=== PATIENT | female | born 1970 | race Caucasian/White ===

== ENCOUNTER → 2016-11-13 | Outpatient (CLI) | payer BC ==
[~2016-11-13] MED LIST: B12 INJECTION; CHOL10003 PO; DEPO-PROVERA IM; DIPH50CA33 PO; PRD20T PO
--- OUTSIDE RECORDS SUMMARY | 2016-11-13 10:19 | XMS REPORT | Continuity of Care Document ---
Author Author [facility] Organization [facility] Address Unknown Phone Unavailable Care Team Providers Care Intake Counselor Name Role Phone PROSPER SANCHEZ DO PCP Insurance Providers Payer Name Policy Number Subscriber Name Relationship [facility] [id number] Kole Groves Self / Same As Patient Advance Directives Directive Response Recorded Date/Time Advance Directives No 02/09/14 7:45am Health Care Power of Clean Energy Policy Analyst No 02/09/14 7:45am Organ Donor No 02/09/14 [...] Encounters Encounter Location Date/Time Discharged Recurring Via [facility] 01/30/15 12:15pm
--- NOTE | 2016-11-13 12:23 | Diagnostic Imaging Report ---
INDICATION: Follow-up right adnexal cystic lesion, postmenopausal. COMPARISON: 09/18/2016. DISCUSSION: Transabdominal and transvaginal sonographic evaluation of the pelvis was performed. The uterus is normal in echotexture and size measuring 6.9 x 4.5 x 3.6 cm. Suspect small fibroid measuring 0.8 cm. Normal endometrial thickness measuring 0.9 cm. The ovaries appear normal in echotexture and size bilaterally with normal color Doppler blood flow. The right ovary measures 2.7 x 1.6 x 1.5 cm. The left ovary measures 4.3 x 2.7 x 2.6 cm. Normal follicular activity is seen within the bilateral ovaries. Previously demonstrated cystic lesion adjacent to the right ovary is no longer visualized, possibly interval resolution of an exophytic functional follicle. No abnormal adnexal mass or fluid. IMPRESSION: 1. Interval resolution of previous right ovarian cystic lesion. Normal follicular activity is noted on today's exam. 2. Suspect subcentimeter uterine fibroid. Dictated by: Dictated on workstation # [id number]
== END ==
LOC: RAD 10:16
PROVIDERS: ATTEND Obstetrics & Gynecology
DX: D28.2 Benign neoplasm of uterine tubes and ligaments (principal)
CPT/HCPCS: 76830; 76856

== ENCOUNTER 2016-12-11 11:03 | Outpatient (RCR) | payer BC ==
--- OUTSIDE RECORDS SUMMARY | 2016-09-18 09:25 | XMS REPORT | Continuity of Care Document ---
Author Author [facility] Organization [facility] Address Unknown Phone Unavailable Care Team Providers Care Corn Miller Name Role Phone PROSPER SANCHEZ DO PCP Insurance Providers Payer Name Policy Number Subscriber Name Relationship [facility] [id number] Kole Groves Self / Same As Patient Advance Directives Directive Response Recorded Date/Time Advance Directives No 02/09/14 7:45am Health Care Power of Customer Support Technician No 02/09/14 7:45am Organ Donor No 02/09/14 7:45am Problems No known problems or medical conditions. Medications Medication Dose Route Sig Days/Qty Instructions Order Date Discontinued Date Status [B12 Injection] Q 3 DAYS 08/29/10 Active Diphenhydramine HCl 1 Each PO THREE TIMES A DAY 20 Qty 08/29/10 Discontinued Prednisone 20 Mg PO TWICE A DAY 10 Qty 08/29/10 02/09/14 Discontinued Cholecalciferol 1,000 Unit PO DAILY 0 Qty 02/09/14 Active [Depo-Provera] IM Q 3 MONTHS 02/09/14 Active Social History Social History Problem Response Recorded Date/Time Recent Foreign Travel No 01/28/2015 11:06am Hospital Discharge Instructions No hospital discharge instructions. Plan of Care No plan of care. Functional Status No functional status results. Allergies, Adverse Reactions, Alerts Allergen Type Severity Reaction Status Last Updated Iron Allergy Unknown IV IRON Active 08/28/10 Immunizations No immunization records. Vital Signs No known vital signs results. Results Laboratory Results Test Name Result Units Flags Reference Collection Date/Time Result Date/ Time Comments White Blood Count 2.9 10^3/uL L 4.3-11.0 01/28/2015 11:38am 01/28/2015 11 :54am Red Blood Count 5.21 10^6/uL 4.35-5.85 01/28/2015 11:38am 01/28/2015 11 :54am Hemoglobin 9.9 G/DL L 11.5-16.0 01/28/2015 11:38am 01/28/2015 11:54am Hematocrit 34 % L 35-52 01/28/2015 11:38am 01/28/2015 11:54am Mean Corpuscular Volume 65 FL L 80-99 01/28/2015 11:38am 01/28/2015 11: 54am Mean Corpuscular Hemoglobin 19 PG L 25-34 01/28/2015 11:38am 01/28/2015 11:54am Mean Corpuscular Hemoglobin Concent 29 G/DL L 32-36 01/28/2015 11:38am 11:54am Red Cell Distribution Width 17.0 % H 10.0-14.5 01/28/2015 11:38am 2014 11:54am Platelet Count 266 10^3/uL 130-400 01/28/2015 11:38am 01/28/2015 11: 54am Mean Platelet Volume 10.7 FL H 7.4-10.4 01/28/2015 11:38am 01/28/2015 11: 54am Neutrophils (%) (Auto) 51 % 42-75 01/28/2015 11:38am 01/28/2015 11: 54am Lymphocytes (%) (Auto) 36 % 12-44 01/28/2015 11:38am 01/28/2015 11: 54am Monocytes (%) (Auto) 11 % 0-12 01/28/2015 11:38am 01/28/2015 11:54am Eosinophils (%) (Auto) 1 % 0-10 01/28/2015 11:38am 01/28/2015 11:54am Basophils (%) (Auto) 1 % 0-10 01/28/2015 11:38am 01/28/2015 11:54am Neutrophils # (Auto) 1.5 X 10^3 L 1.8-7.8 01/28/2015 11:38am 01/28/2015 11:54am Lymphocytes # (Auto) 1.0 X 10^3 1.0-4.0 01/28/2015 11:38am 01/28/2015 11:54am Monocytes # (Auto) 0.3 X 10^3 0.0-1.0 01/28/2015 11:38am 01/28/2015 11: 54am Eosinophils # (Auto) 0.0 10^3/uL 0.0-0.3 01/28/2015 11:38am 01/28/2015 11:54am Basophils # (Auto) 0.0 10^3/uL 0.0-0.1 01/28/2015 11:38am 01/28/2015 11 :54am Erythrocyte Sedimentation Rate 13 MM/HR 0-20 01/28/2015 11:38am 2014 2:01pm Sodium Level 141 MMOL/L 135-145 01/28/2015 11:3801/28/2015 12:15pm Potassium Level 3.8 MMOL/L 3.6-5.0 01/28/2015 11:3801/28/2015 12: 15pm Chloride Level 109 MMOL/L H 98-107 01/28/2015 11:3801/28/2015 12:15pm Carbon Dioxide Level 25 MMOL/L 21-32 01/28/2015 11:38am 01/28/2015 12: 15pm Blood Urea Nitrogen 7 MG/DL 7-18 01/28/2015 11:3801/28/2015 12:15pm Creatinine 0.77 MG/DL 0.60-1.30 01/28/2015 11:3801/28/2015 12:15pm BUN/Creatinine Ratio 9 01/28/2015 11:3801/28/2015 12:15pm Estimat Glomerular Filtration Rate > 60 01/28/2015 11:382014 12:15pm GFR INTERPRETIVE DATA UNITS FOR ESTIMATED GFR (eGFR): mL/min/1.73 M2 REFERENCE RANGE FOR ESTIMATED GFR (eGFR) eGFR NORMAL eGFR >60 MODERATELY DECREASED eGFR 30-59 SEVERLY DECREASED eGFR 15-29 KIDNEY FAILURE <15 (OR DIALYSIS) Glucose Level 92 MG/DL 70-105 01/28/2015 11:3801/28/2015 12:15pm Calcium Level 9.5 MG/DL 8.5-10.1 01/28/2015 11:3801/28/2015 12:15pm Total Bilirubin 1.0 MG/DL 0.1-1.0 01/28/2015 11:3801/28/2015 12: 15pm Alkaline Phosphatase 55 U/L 40-136 01/28/2015 11:3801/28/2015 12: 15pm Aspartate Amino Transf (AST/SGOT) 23 U/L 5-34 01/28/2015 11:382014 12:15pm Alanine Aminotransferase (ALT/SGPT) 18 U/L 0-55 01/28/2015 11:38 12:15pm Lactate Dehydrogenase 168 U/L 125-220 01/28/2015 11:3801/28/2015 12: 15pm Total Protein 7.5 G/DL 6.4-8.2 01/28/2015 11:3801/28/2015 12:15pm Albumin 4.2 G/DL 3.2-4.5 01/28/2015 11:3801/28/2015 12:15pm Thyroid Stimulating Hormone (TSH) 1.21 UIU/ML 0.35-4.94 01/28/2015 11: 3801/28/2015 12:43pm Free Thyroxine 1.00 NG/DL 0.70-1.48 01/28/2015 11:38am 01/28/2015 12: 43pm Stool Occult Blood Immunoassay NEGATIVE NEGATIVE 01/29/2015 11:00pm 01/30/2015 2:20pm Anti-Nuclear Antibody Screen <1:80 <1:80 01/28/2015 11:382014 8:16am IF GENET SCREEN POSITIVE TITER AND PATTERN WILL FOLLOW. Index Value Interpretation <1:20 NORMAL RANGE FOR CHILDREN AGE 0 - 12 years <1:80 NORMAL RANGE FOR ADULTS AGE 13 - 150 years Ferritin 5 L NG/ML 15-150 01/28/2015 11:38am 01/31/2015 8:16am Folate 13.3 NG/ML 1.5-24.0 01/28/2015 11:38am 01/31/2015 8:16am Iron Level 11 L UG/DL 35-180 01/28/2015 11:38am 01/31/2015 8:16am Transferrin % Saturation 2 L % 15-50 01/28/2015 11:38am 01/31/2015 8: 16am Total Iron Binding Capacity 441 H UG/DL 280-380 01/28/2015 11:38am 8:16am Vitamin B12 Level 216 PG/ML 200-1000 01/28/2015 11:38am 01/31/2015 8: 16am Vitamin D 25-Hydroxy 10 L NG/ML 30-100 01/28/2015 11:38am 01/31/2015 8 :16am Fluorescein dye has been shown to affect the Vitamin D assay and results may be falsely elevated. Patients that have had a procedure using this dye should be deferred 72 hours prior to blood samples drawn for this assay. Procedures No known history of procedures. Encounters Encounter Location Date/Time Discharged Recurring Via [facility] 01/30/15 12:15pm
[2016-09-18 09:54] LABS: BASOPHILS % (AUTO) 0 % (0-10); EOSINOPHILS # (AUTO) 0.1 10^3/uL (0.0-0.3); EOSINOPHILS % (AUTO) 1 % (0-10); LYMPHOCYTES # (AUTO) 1.4 X 10^3 (1.0-4.0); LYMPHOCYTES % (AUTO) 27 % (12-44); MEAN CORPUSCULAR HEMOGLOBIN 28 PG (25-34); MEAN CORPUSCULAR HGB CONC 33 G/DL (32-36); MEAN CORPUSCULAR VOLUME 84 FL (80-99); MEAN PLATELET VOLUME 10.2 FL (7.4-10.4); MONOCYTES # (AUTO) 0.6 X 10^3 (0.0-1.0); MONOCYTES % (AUTO) 12 % (0-12); NEUTROPHILS # (AUTO) 3.1 X 10^3 (1.8-7.8); NEUTROPHILS % (AUTO) 60 % (42-75); PLATELET COUNT 185 10^3/uL (130-400); RED CELL DISTRIBUTION WIDTH 18.1 % (10.0-14.5); WHITE BLOOD COUNT 5.2 10^3/uL (4.3-11.0)
[2016-09-18 10:30] LABS: ALANINE AMINOTRANSFERASE 21 U/L (0-55); ALBUMIN 4.1 G/DL (3.2-4.5); ANION GAP 8 MMOL/L (5-14); ASPARTATE AMINO TRANSFERASE 19 U/L (5-34); BILIRUBIN,TOTAL 1.9 MG/DL (0.1-1.0); BLOOD UREA NITROGEN 8 MG/DL (7-18); BUN/CREATININE RATIO 12; CALCIUM 8.8 MG/DL (8.5-10.1); CARBON DIOXIDE 23 MMOL/L (21-32); CHLORIDE 111 MMOL/L (98-107); CREATININE SERUM 0.68 MG/DL (0.60-1.30); GFR ESTIMATED > 60; GLUCOSE 87 MG/DL (70-105); POTASSIUM 4.1 MMOL/L (3.6-5.0); SODIUM 142 MMOL/L (135-145); TOTAL PROTEIN 6.2 G/DL (6.4-8.2)
[2016-09-18 12:24] LABS: %SAT TOTAL IRON BINDING CAPIC 28 % (15-50); TIBC 327 ug/dL (280-380)
[2016-09-19 07:52] LABS: FERRITIN 19 ng/mL (15-150); UIBC 235 ug/dL (55-450)
[2016-09-25 15:41] LABS: RED BLOOD COUNT 4.91 10^6/uL (4.35-5.85); RETICULOCYTE % 0.78 % (0.50-2.40)
[2016-12-11 11:11] LABS: BASOPHILS % (AUTO) 1 % (0-10); EOSINOPHILS # (AUTO) 0.1 10^3/uL (0.0-0.3); EOSINOPHILS % (AUTO) 1 % (0-10); LYMPHOCYTES # (AUTO) 1.8 X 10^3 (1.0-4.0); LYMPHOCYTES % (AUTO) 28 % (12-44); MEAN CORPUSCULAR HEMOGLOBIN 30 PG (25-34); MEAN CORPUSCULAR HGB CONC 34 G/DL (32-36); MEAN CORPUSCULAR VOLUME 89 FL (80-99); MEAN PLATELET VOLUME 10.1 FL (7.4-10.4); MONOCYTES # (AUTO) 0.7 X 10^3 (0.0-1.0); MONOCYTES % (AUTO) 11 % (0-12); NEUTROPHILS # (AUTO) 3.7 X 10^3 (1.8-7.8); NEUTROPHILS % (AUTO) 59 % (42-75); PLATELET COUNT 225 10^3/uL (130-400); RED BLOOD COUNT 4.93 10^6/uL (4.35-5.85); RED CELL DISTRIBUTION WIDTH 12.5 % (10.0-14.5); WHITE BLOOD COUNT 6.3 10^3/uL (4.3-11.0)
[2016-12-11 11:47] LABS: ALANINE AMINOTRANSFERASE 25 U/L (0-55); ALBUMIN 4.3 G/DL (3.2-4.5); ANION GAP 8 MMOL/L (5-14); ASPARTATE AMINO TRANSFERASE 26 U/L (5-34); BILIRUBIN,DIRECT 0.5 MG/DL (0.0-0.3); BILIRUBIN,TOTAL 1.5 MG/DL (0.1-1.0); BLOOD UREA NITROGEN 13 MG/DL (7-18); BUN/CREATININE RATIO 17; CALCIUM 9.1 MG/DL (8.5-10.1); CARBON DIOXIDE 25 MMOL/L (21-32); CHLORIDE 109 MMOL/L (98-107); CREATININE SERUM 0.76 MG/DL (0.60-1.30); GFR ESTIMATED > 60; GLUCOSE 92 MG/DL (70-105); POTASSIUM 4.8 MMOL/L (3.6-5.0); SODIUM 142 MMOL/L (135-145); TOTAL PROTEIN 6.6 G/DL (6.4-8.2)
[2016-12-14 07:49] LABS: ZINC 73 ug/dL (60-120)
[2016-12-14 07:50] LABS: COPPER 102 ug/dL (80-155)
== END 2016-12-17 | disposition home or self-care (01) ==
LOC: ONC 11:03
PROVIDERS: ATTEND Internal Medicine Hematology & Oncology
DX: D50.9 Iron deficiency anemia, unspecified (principal)
CPT/HCPCS: 36415; 80053; 82248; 82525; 82728; 83540; 84630; 85025; 85045; 99213

== ENCOUNTER → 2016-12-11 | Outpatient (CLI) | payer BC ==
--- OUTSIDE RECORDS SUMMARY | 2016-12-11 11:04 | XMS REPORT | Continuity of Care Document ---
Author Author [facility] Organization [facility] Address Unknown Phone Unavailable Care Team Providers Care Job Setter Name Role Phone PROSPER SANCHEZ DO PCP Insurance Providers Payer Name Policy Number Subscriber Name Relationship [facility] [id number] Kole Groves Self / Same As Patient Advance Directives Directive Response Recorded Date/Time Advance Directives No 02/09/14 7:45am Health Care Power of Brim Pouncing Machine Operator No 02/09/14 7:45am Organ Donor No 02/09/14 [...] Encounters Encounter Location Date/Time Discharged Recurring Via [facility] 01/30/15 12:15pm
== END ==
LOC: LAB 11:00
PROVIDERS: ATTEND Family Medicine
DX: E53.8 Deficiency of other specified B group vitamins (principal)
CPT/HCPCS: 36415; 82607

== ENCOUNTER 2016-12-25 09:54 | Outpatient (RCR) | payer BC ==
--- OUTSIDE RECORDS SUMMARY | 2016-12-25 09:57 | XMS REPORT | Continuity of Care Document ---
Author Author [facility] Organization [facility] Address Unknown Phone Unavailable Care Team Providers Care Personal Counselor Name Role Phone PROSPER SANCHEZ DO PCP Insurance Providers Payer Name Policy Number Subscriber Name Relationship [facility] [id number] Kole Groves Self / Same As Patient Advance Directives Directive Response Recorded Date/Time Advance Directives No 02/09/14 7:45am Health Care Power of Salvage Machine Operator No 02/09/14 7:45am Organ Donor [...] Encounters Encounter Location Date/Time Discharged Recurring Via [facility] 01/30/15 12:15pm
== END 2017-03-25 | disposition home or self-care (01) ==
LOC: ONC 09:54
PROVIDERS: ATTEND Internal Medicine Hematology & Oncology
DX: D50.8 Other iron deficiency anemias (principal); E53.8 Deficiency of other specified B group vitamins; E80.6 Other disorders of bilirubin metabolism; E66.9 Obesity, unspecified; Z68.37 Body mass index [BMI] 37.0-37.9, adult; Z98.84 Bariatric surgery status; Z79.899 Other long term (current) drug therapy
CPT/HCPCS: 99213

== ENCOUNTER 2017-04-09 10:01 | Outpatient (RCR) | payer BC ==
[2017-03-26 08:47] LABS: BASOPHILS % (AUTO) 1 % (0-10); EOSINOPHILS # (AUTO) 0.1 10^3/uL (0.0-0.3); EOSINOPHILS % (AUTO) 2 % (0-10); LYMPHOCYTES # (AUTO) 1.4 X 10^3 (1.0-4.0); LYMPHOCYTES % (AUTO) 33 % (12-44); MEAN CORPUSCULAR HEMOGLOBIN 30 PG (25-34); MEAN CORPUSCULAR HGB CONC 34 G/DL (32-36); MEAN CORPUSCULAR VOLUME 89 FL (80-99); MEAN PLATELET VOLUME 10.6 FL (7.4-10.4); MONOCYTES # (AUTO) 0.5 X 10^3 (0.0-1.0); MONOCYTES % (AUTO) 11 % (0-12); NEUTROPHILS # (AUTO) 2.3 X 10^3 (1.8-7.8); NEUTROPHILS % (AUTO) 54 % (42-75); PLATELET COUNT 210 10^3/uL (130-400); RED BLOOD COUNT 4.74 10^6/uL (4.35-5.85); RED CELL DISTRIBUTION WIDTH 12.4 % (10.0-14.5); WHITE BLOOD COUNT 4.3 10^3/uL (4.3-11.0)
[2017-03-26 09:15] LABS: ALANINE AMINOTRANSFERASE 14 U/L (0-55); ALBUMIN 3.9 G/DL (3.2-4.5); ANION GAP 5 MMOL/L (5-14); ASPARTATE AMINO TRANSFERASE 16 U/L (5-34); BILIRUBIN,TOTAL 1.6 MG/DL (0.1-1.0); BLOOD UREA NITROGEN 11 MG/DL (7-18); BUN/CREATININE RATIO 16; CALCIUM 8.8 MG/DL (8.5-10.1); CARBON DIOXIDE 27 MMOL/L (21-32); CHLORIDE 110 MMOL/L (98-107); CREATININE SERUM 0.69 MG/DL (0.60-1.30); GFR ESTIMATED > 60; GLUCOSE 95 MG/DL (70-105); POTASSIUM 4.1 MMOL/L (3.6-5.0); SODIUM 142 MMOL/L (135-145); TOTAL PROTEIN 6.1 G/DL (6.4-8.2)
== END 2017-06-24 | disposition home or self-care (01) ==
LOC: ONC 10:01
PROVIDERS: ATTEND Internal Medicine Hematology & Oncology
DX: D50.8 Other iron deficiency anemias (principal); E53.8 Deficiency of other specified B group vitamins; E80.6 Other disorders of bilirubin metabolism; E66.9 Obesity, unspecified; Z68.37 Body mass index [BMI] 37.0-37.9, adult; Z98.84 Bariatric surgery status; Z79.899 Other long term (current) drug therapy
CPT/HCPCS: 36415; 80053; 82607; 82728; 83540; 85025; 99213

== ENCOUNTER 2017-07-09 09:40 | Outpatient (RCR) | payer BC ==
[2017-07-09 10:05] LABS: BASOPHILS # (AUTO) 0.1 10^3/uL (0.0-0.1); BASOPHILS % (AUTO) 1 % (0-10); EOSINOPHILS # (AUTO) 0.1 10^3/uL (0.0-0.3); EOSINOPHILS % (AUTO) 1 % (0-10); LYMPHOCYTES # (AUTO) 1.5 X 10^3 (1.0-4.0); LYMPHOCYTES % (AUTO) 23 % (12-44); MEAN CORPUSCULAR HEMOGLOBIN 30 PG (25-34); MEAN CORPUSCULAR HGB CONC 33 G/DL (32-36); MEAN CORPUSCULAR VOLUME 89 FL (80-99); MEAN PLATELET VOLUME 10.9 FL (7.4-10.4); MONOCYTES # (AUTO) 0.7 X 10^3 (0.0-1.0); MONOCYTES % (AUTO) 11 % (0-12); NEUTROPHILS # (AUTO) 4.1 X 10^3 (1.8-7.8); NEUTROPHILS % (AUTO) 63 % (42-75); PLATELET COUNT 220 10^3/uL (130-400); RED BLOOD COUNT 4.78 10^6/uL (4.35-5.85); RED CELL DISTRIBUTION WIDTH 12.4 % (10.0-14.5); WHITE BLOOD COUNT 6.5 10^3/uL (4.3-11.0)
== END 2017-08-10 | disposition home or self-care (01) ==
LOC: ONC 09:40
PROVIDERS: ATTEND Internal Medicine Hematology & Oncology
DX: D50.8 Other iron deficiency anemias (principal); E53.8 Deficiency of other specified B group vitamins; E80.6 Other disorders of bilirubin metabolism; E66.9 Obesity, unspecified; Z68.37 Body mass index [BMI] 37.0-37.9, adult; Z98.84 Bariatric surgery status; Z79.899 Other long term (current) drug therapy
CPT/HCPCS: 36415; 82728; 83540; 85025

== ENCOUNTER → 2017-07-09 | Outpatient (CLI) | payer BC ==
[2017-07-09 16:33] LABS: MAGNESIUM 2.3 MG/DL (1.8-2.4); PHOSPHORUS 3.2 MG/DL (2.3-4.7); URIC ACID 4.8 MG/DL (2.6-7.2)
[2017-07-10 06:40] LABS: VITAMIN D 25-HYDROXY (TOTAL) 19 ng/mL (30-100)
[2017-07-10 06:41] LABS: FOLLICLE STIMULATING HORMONE 14.3 mIU/mL; LUTEINIZING HORMONE 4.4 mIU/mL
== END ==
LOC: LAB 09:44
PROVIDERS: ATTEND Family Medicine
DX: N95.1 Menopausal and female climacteric states (principal)
CPT/HCPCS: 36415; 82306; 82670; 83001; 83002; 83735; 84100; 84443; 84550; 85652; 86038; 86430

== ENCOUNTER 2017-10-08 08:45 | Outpatient (RCR) | payer BC ==
[2017-10-08 09:05] LABS: BASOPHILS % (AUTO) 0 % (0-10); EOSINOPHILS # (AUTO) 0.1 10^3/uL (0.0-0.3); EOSINOPHILS % (AUTO) 1 % (0-10); HEMATOCRIT 43 % (35-52); HEMOGLOBIN 14.4 G/DL (11.5-16.0); LYMPHOCYTES # (AUTO) 1.5 X 10^3 (1.0-4.0); LYMPHOCYTES % (AUTO) 29 % (12-44); MEAN CORPUSCULAR HEMOGLOBIN 29 PG (25-34); MEAN CORPUSCULAR HGB CONC 33 G/DL (32-36); MEAN CORPUSCULAR VOLUME 88 FL (80-99); MEAN PLATELET VOLUME 10.7 FL (7.4-10.4); MONOCYTES # (AUTO) 0.5 X 10^3 (0.0-1.0); MONOCYTES % (AUTO) 10 % (0-12); NEUTROPHILS # (AUTO) 3.2 X 10^3 (1.8-7.8); NEUTROPHILS % (AUTO) 60 % (42-75); PLATELET COUNT 198 10^3/uL (130-400); RED BLOOD COUNT 4.89 10^6/uL (4.35-5.85); RED CELL DISTRIBUTION WIDTH 12.5 % (10.0-14.5); WHITE BLOOD COUNT 5.3 10^3/uL (4.3-11.0)
[2017-10-08 09:28] LABS: ALANINE AMINOTRANSFERASE 17 U/L (0-55); ALBUMIN 3.9 GM/DL (3.2-4.5); ALKALINE PHOSPHATASE 40 U/L (40-136); BILIRUBIN,TOTAL 1.6 MG/DL (0.1-1.0); BUN/CREATININE RATIO 11; CALCIUM 8.9 MG/DL (8.5-10.1); CARBON DIOXIDE 24 MMOL/L (21-32); CHLORIDE 109 MMOL/L (98-107); CREATININE SERUM 0.76 MG/DL (0.60-1.30); GFR ESTIMATED > 60; GLUCOSE 122 MG/DL (70-105); SODIUM 140 MMOL/L (135-145); TOTAL PROTEIN 6.3 GM/DL (6.4-8.2)
== END 2018-01-06 | disposition home or self-care (01) ==
LOC: ONC 08:45
PROVIDERS: ATTEND Internal Medicine Hematology & Oncology
DX: D50.8 Other iron deficiency anemias (principal); E53.8 Deficiency of other specified B group vitamins; E80.6 Other disorders of bilirubin metabolism; E66.9 Obesity, unspecified; Z68.33 Body mass index [BMI] 33.0-33.9, adult; Z98.84 Bariatric surgery status; Z79.899 Other long term (current) drug therapy
CPT/HCPCS: 36415; 80053; 85025; 99213

== ENCOUNTER → 2017-10-15 | Outpatient (CLI) | payer BC ==
--- NOTE | 2017-10-16 18:59 | Diagnostic Imaging Report ---
Bilateral screening mammogram 2D views with tomosynthesis The current study was also evaluated with a Computer Aided Detection (CAD) system. Indication: Screening. No current complaints stated on the questionnaire. COMPARISON: 09/18/2016. FINDINGS: The breasts are composed of heterogeneously dense parenchyma which may decrease mammographic sensitivity. Scattered benign-appearing calcifications are seen. Allowing for technique and positional differences, no suspicious change is seen. IMPRESSION: No significant change. ACR BI-RADS Category 2: Benign findings. Result letter will be mailed to the patient. Note: At least 10% of breast cancer is not imaged by mammography. Dictated by: Dictated on workstation # [id number]
== END ==
LOC: RAD 08:58
PROVIDERS: ATTEND Family Medicine
DX: Z12.31 Encounter for screening mammogram for malignant neoplasm of breast (principal)
CPT/HCPCS: 77067

== ENCOUNTER → 2018-10-21 | Outpatient (CLI) | payer BC ==
--- NOTE | 2018-10-21 19:49 | Diagnostic Imaging Report ---
INDICATION: Screening. EXAMINATION: Digital mammogram bilateral screening with 3-D tomosynthesis. This study was compared to prior exams of 10/15/2017, 09/18/2016 and 04/24/2013. At this time, there are no current complaints. The current study was also evaluated with a Computer Aided Detection (CAD) system. FINDINGS: The fibroglandular tissue in both breasts is heterogeneously dense. This does limit the sensitivity of this exam. Overall, there does not appear to have been any significant change when compared to the prior study. No primary or secondary sign of malignancy is noted. IMPRESSION: There is no radiographic evidence for malignancy. ACR BI-RADS Category 1: Negative. Result letter will be mailed to the patient. Note: At least 10% of breast cancer is not imaged by mammography. Dictated by: Dictated on workstation # [id number]
== END ==
LOC: RAD 07:32
PROVIDERS: ATTEND Family Medicine
DX: Z12.31 Encounter for screening mammogram for malignant neoplasm of breast (principal)
CPT/HCPCS: 77067

== ENCOUNTER → 2020-05-31 | Outpatient (CLI) | payer BC | LOC: LABNPT 06:42 | PROVIDERS: ATTEND Family Medicine | DX: Z53.9 Procedure and treatment not carried out, unspecified reason (principal) ==

== ENCOUNTER 2021-06-13 10:57 | Outpatient (CLI) | payer BC ==
[~2021-06-13] VITALS: Ht 167.7 cm; Wt 95.5 kg
== END 2021-06-13 13:27 | disposition home or self-care (01) ==
LOC: PREOP 10:57
PROVIDERS: ATTEND Obstetrics & Gynecology
DX: Z01.818 Encounter for other preprocedural examination (principal)

== ENCOUNTER 2021-06-19 07:17 | Day surgery (SDC) | payer BC ==
[2021-06-19] VITALS (10 sets, daily range): BP systolic 127–143; BP diastolic 80–92
[~2021-06-19] VITALS: Ht 167.7 cm; Wt 103.1 kg
[2021-06-19] MEDS ORDERED: BUPIVACAINE 0.25% 30 ML (SENSORCAINE) VIAL ONE (08:05)
[2021-06-19 08:14] LABS: BASOPHILS % (AUTO) 1 % (0-10); EOSINOPHILS # (AUTO) 0.1 10^3/uL (0.0-0.3); EOSINOPHILS % (AUTO) 2 % (0-10); HEMATOCRIT 38 % (35-52); HEMOGLOBIN 12.4 g/dL (11.5-16.0); LYMPHOCYTES # (AUTO) 1.5 10^3/uL (1.0-4.0); LYMPHOCYTES % (AUTO) 28 % (12-44); MEAN CORPUSCULAR HEMOGLOBIN 27 pg (25-34); MEAN CORPUSCULAR HGB CONC 32 g/dL (32-36); MEAN CORPUSCULAR VOLUME 83 fL (80-99); MEAN PLATELET VOLUME 11.8 fL (9.0-12.2); MONOCYTES # (AUTO) 0.6 10^3/uL (0.0-1.0); MONOCYTES % (AUTO) 12 % (0-12); NEUTROPHILS # (AUTO) 2.9 10^3/uL (1.8-7.8); NEUTROPHILS % (AUTO) 56 % (42-75); PLATELET COUNT 195 10^3/uL (130-400); WHITE BLOOD COUNT 5.2 10^3/uL (4.3-11.0)
[2021-06-19] MEDS ORDERED: LACTATED RINGERS 1,000 ML IV PRN (08:15)
[2021-06-19] MEDS ORDERED: LIDOCAINE PF 2% 5 ML (XYLOCAINE) VIAL ONE (08:22)
[2021-06-19] MEDS ORDERED: MIDAZOLAM 2 MG/2 ML (VERSED) VIAL ONE (08:22)
[2021-06-19] MEDS ORDERED: KETOROLAC 30 MG/ML VIAL ONE (08:22)
[2021-06-19] MEDS ORDERED: ONDANSETRON 4 MG/2 ML (SDV) Z0FRAN ONE (08:22)
[2021-06-19] MEDS ORDERED: fentaNYL INJ 100 MCG/2 ML AMP ONE (08:22)
[2021-06-19] MEDS ORDERED: proPOfol 200 MG/20 ML (DIPRIVAN) VIAL IV ONE (08:22)
--- NOTE | 2021-06-19 08:56 | Progress Note-Pre Operative ---
Pre-Operative Progress Note H&P Reviewed The H&P was reviewed, patient examined and no changes noted. Date Seen by Provider: Jun 19, 2021 Time Seen by Provider: 08:55 Date H&P Reviewed: Jun 19, 2021 Time H&P Reviewed: 08:45 Pre-Operative Diagnosis: MONICA MILLER DO Jun 19, 2021 08:56
--- NOTE | 2021-06-19 08:57 | Discharge Inst-Women's Service ---
Discharge Inst-Women's Serv Depart Medication/Instructions New, Converted or Re-Newed RX: RX on Chart Problems Reviewed?: Yes Consults/Follow Up Additional Follow Up: Yes Orders/Referrals Dr. John in 7-10 days Activity Activity: Activity as Tolerated Driving Instructions: You May Drive NO SMOKING: NO SMOKING Nothing Inside Vagina: No Douching, No [place], No Tampons Diet Discharge Diet: No Restrictions Symptoms to Report to : Bleeding Excessive, Pain Increased, Fever Over 101 Degrees F, Vaginal Bleeding Increase, Questions/Concerns For Any Problems or Questions: Contact Your Physician MONICA JOHN DO Jun 19, 2021 08:57
[2021-06-19] MEDS ORDERED: IBUP-1773 PO (08:58)
[2021-06-19] MEDS ORDERED: D5 LR IV SOLUTION 1,000 ML IV SCH (09:00)
[2021-06-19] MEDS ORDERED: ONDANSETRON 4 MG/2 ML (SDV) Z0FRAN IVP PRN ×2 (09:00→09:30)
[2021-06-19] MEDS ORDERED: KETOROLAC 30 MG/ML VIAL IVP ONE (09:00)
[2021-06-19] MEDS ORDERED: HYDROcodone/APAP 5 MG/325 MG (LORTAB) TAB PO PRN (09:00)
[2021-06-19] MEDS ORDERED: SEVOFLURANE (ULTANE) 15 ML INHAL SOLN ONE (09:18)
[2021-06-19] MEDS ORDERED: MEPERIDINE (DEMEROL) INJ 50 MG/ML IVP ONE (09:30)
[2021-06-19] MEDS ORDERED: morphine INJ 10 MG/ML 1ML (SYR OR VIAL) IVP ONE (09:30)
[2021-06-19] MEDS ORDERED: HYDROmorphone 2 MG/ML VIAL (DILAUDID) IV ONE (09:30)
[2021-06-19] MEDS ORDERED: morphine INJ 10 MG/ML 1ML (SYR OR VIAL) ONE (09:33)
--- NOTE | 2021-06-19 12:24 | OPERATIVE REPORT ---
DATE OF SERVICE: 06/19/2021 PREOPERATIVE DIAGNOSIS: A 51-year-old female with abnormal uterine bleeding. POSTOPERATIVE DIAGNOSIS: A 51-year-old female with abnormal uterine bleeding. PROCEDURE: D and C. SURGEON: Monica John DO ANESTHESIA: LMA general. ESTIMATED BLOOD LOSS: Minimal. URINE OUTPUT: 200 mL drained at the start of the procedure. FLUIDS: 600 mL lactated Ringer's solution. FINDINGS: Grossly normal-appearing external female genitalia and a small to moderate amount of endometrial tissue. SPECIMEN SENT: Endometrial curettings. INDICATIONS FOR PROCEDURE: This 51-year-old female is a patient that was sent to me from [facility] for abnormal uterine bleeding. Due to her age and BMI, the amount of bleeding that she was having, I discussed with the patient proceeding with endometrial biopsy; however, due to ongoing bleeding. We discussed how D and C could both provide us with pathology answer as well as potentially cure her bleeding. She was happy to hear about this and wanted to proceed with D and C. Risks of procedure were discussed with the patient in detail and after all of her questions were answered, consent was obtained in the preoperative area, the patient was taken to the operating room. OPERATIVE REPORT IN DETAIL: Once in the operating room, anesthesia was found to be adequate, placed in dorsal lithotomy position, prepped and draped in normal sterile fashion. A timeout was performed. The bladder was first drained using a straight catheterization. A weighted speculum inserted to the patient's vagina. Right angle retractor was used to visualize the cervix. It was grasped at 12 o'clock position using a long Allis clamp. I then performed paracervical block at 3 and 9 o'clock positions on the cervix. Care was taken to aspirate for injecting 5 mL of 0.25% Marcaine injected into each site. I then gently sound the uterine cavity, depth was found to be 7 cm. I then gently dilated the cervix using Hanks dilators to allow a medium size endometrial curette to be passed into the uterus. Once this was done, I cleared all the endometrial tissue off of the endometrial cavities and the medium sized curette. I did this in a methodical fashion until a gentle uterine cry is felt at which point, there is no active bleeding noted from the cervix. The specimen was collected and sent it as endometrial curettings. I removed all the other instruments from the patient's vagina. The patient tolerated the procedure well and sent to recovery area in stable condition. Lap and sponge counts were correct at the end of procedure. Instrument counts correct as well. Job ID: [id number] DocumentID: [id number] Dictated Date: 06/19/2021 09:23:28 Linoleum Layer Date: 06/19/2021 12:23:45 Dictated By: MONICA JOHN DO
--- NOTE | 2021-06-19 12:52 | Anesthesia-General Post-Op ---
General Patient Condition Mental Status/LOC: Same as Preop Cardiovascular: Satisfactory Nausea/Vomiting: Absent Respiratory: Satisfactory Pain: Controlled Complications: Absent Post Op Complications Complications None Follow Up Care/Instructions Patient Instructions None needed. Anesthesia/Patient Condition Patient Condition Patient is doing well, no complaints, stable vital signs, no apparent adverse anesthesia problems. No complications reported per nursing. D/C home per [facility] Criteria: Yes KIA DSOUZA CRNA Jun 19, 2021 12:52
== END 2021-06-19 12:15 | disposition home or self-care (01) ==
LOC: SDC 07:17
PROVIDERS: ATTEND Obstetrics & Gynecology
DX: N93.9 Abnormal uterine and vaginal bleeding, unspecified (principal); E66.9 Obesity, unspecified; D25.1 Intramural leiomyoma of uterus; Z90.49 Acquired absence of other specified parts of digestive tract; Z68.36 Body mass index [BMI] 36.0-36.9, adult; Z83.3 Family history of diabetes mellitus; Z82.49 Family history of ischemic heart disease and other diseases of the circulatory system; Z80.7 Family history of other malignant neoplasms of lymphoid, hematopoietic and related tissues; Z80.49 Family history of malignant neoplasm of other genital organs
CPT/HCPCS: 36415; 84703; 85025; 86850; 86900; 86901; 87081; 88305; 93005

== ENCOUNTER 2022-04-30 05:32 | Outpatient (CLI) | payer BC ==
[~2022-04-30] VITALS: Ht 170.2 cm; Wt 95.0 kg
[~2022-04-30 05:32] MED LIST changes: +IBUP-1773 PO
[2022-05-02] MEDS ORDERED: VITAMIN B12 INJ (14:49)
[2022-05-02] MEDS ORDERED: PROG100C11 PO (14:52)
[2022-05-02] MEDS ORDERED: EST1.25T PO (14:52)
== END 2022-05-02 14:56 | disposition home or self-care (01) ==
LOC: PREOP 05:32
PROVIDERS: ATTEND Obstetrics & Gynecology
DX: Z01.818 Encounter for other preprocedural examination (principal)

== ENCOUNTER 2022-05-07 08:54 | Day surgery (SDC) | payer BC ==
[2022-05-07] VITALS (10 sets, daily range): BP systolic 124–141; BP diastolic 69–88
[~2022-05-07] VITALS: Ht 170 cm; Wt 95.0 kg
[~2022-05-07 08:54] MED LIST changes: +EST1.25T PO; +PROG100C11 PO; +VITAMIN B12 INJ
[2022-05-07] MEDS ORDERED: BUPIVACAINE 0.25% 10 ML (SENSORCAINE) VIAL ONE (09:52)
[2022-05-07 09:54] LABS: HEMATOCRIT 37 % (35-52); HEMOGLOBIN 10.8 g/dL (11.5-16.0); MEAN CORPUSCULAR HEMOGLOBIN 22 pg (25-34); MEAN CORPUSCULAR HGB CONC 30 g/dL (32-36); MEAN CORPUSCULAR VOLUME 75 fL (80-99); MEAN PLATELET VOLUME 10.6 fL (9.0-12.2); PLATELET COUNT 238 10^3/uL (130-400); WHITE BLOOD COUNT 4.4 10^3/uL (4.3-11.0)
[2022-05-07] MEDS ORDERED: ceFAZolin 2 GM IV Premixed 50 ML IV ONE (10:00)
[2022-05-07] MEDS ORDERED: ceFAZolin 2 GM/50 ML (PRE-MIXED) IV ONE (10:00)
[2022-05-07] MEDS: LACTATED RINGERS 1,000 ML IV PRN ×2 (10:01→11:55)
[2022-05-07] MEDS ORDERED: LIDOCAINE PF 2% 5 ML (XYLOCAINE) VIAL ONE (10:10)
[2022-05-07] MEDS ORDERED: proPOfol 200 MG/20 ML (DIPRIVAN) VIAL IV ONE (10:10)
[2022-05-07] MEDS ORDERED: ROCURONIUM 50 MG/5 ML (ZEMURON) VIAL IV ONE (10:10)
[2022-05-07] MEDS ORDERED: MIDAZOLAM 2 MG/2 ML (VERSED) VIAL ONE (10:10)
[2022-05-07] MEDS ORDERED: SEVOFLURANE (ULTANE) 15 ML INHAL SOLN ONE ×2 (10:10→11:49)
[2022-05-07] MEDS ORDERED: fentaNYL INJ 100 MCG/2 ML AMP ONE ×2 (10:10→12:03)
--- NOTE | 2022-05-07 10:14 | Discharge Inst-Women's Service ---
Discharge Inst-Women's Serv Depart Medication/Instructions New, Converted or Re-Newed RX: Transmitted to Pharmacy Consults/Follow Up Additional Follow Up: Yes (1wk incision check & 8wk follow-up) Activity Activity: Activity as Tolerated Driving Instructions: No Driving for 1 Week NO SMOKING: NO SMOKING Nothing Inside Vagina: No Douching, No [place], No Tampons Diet Discharge Diet: No Restrictions Symptoms to Report to DrBerto: Bleeding Excessive, Fever Over 101 Degrees F, Vaginal Bleeding Increase For Any Problems or Questions: Contact Your Physician Skin/Wound Care Infection Signs and Symptoms: Increased Redness, Increased Drainage, Temperature Above 101 F Operative Area Clean and Dry: Keep Incision Clean/Dry Stitches/Melonie/Dermabond: Dermabond Bathing Instructions: MONICA Martin DO May 07, 2022 10:14
[2022-05-07] MEDS ORDERED: DOCUSATE SODIUM 100 MG (COLACE) CAP PO PRN (10:15)
[2022-05-07] MEDS ORDERED: LACTATED RINGERS 1,000 ML IV SCH (10:15)
[2022-05-07] MEDS ORDERED: NALOXONE 0.4 MG/ML 1 ML (NARCAN) VIAL IV PRN (10:15)
[2022-05-07] MEDS ORDERED: SIMETHICONE 80 MG (MYLICON) CHEW PO PRN (10:15)
[2022-05-07] MEDS ORDERED: HYDROcodone/APAP 7.5 MG/325 MG (LORTAB, LORCET PLUS) TABLET PO PRN (10:15)
[2022-05-07] MEDS ORDERED: ANTACID SUSP 30 ML UDC (MYLANTA) PO PRN (10:15)
[2022-05-07] MEDS ORDERED: IBUPROFEN 600 MG (MOTRIN) TAB PO PRN (10:15)
[2022-05-07] MEDS ORDERED: ONDANSETRON 4 MG/2 ML (SDV) Z0FRAN IV PRN (10:15)
[2022-05-07] MEDS ORDERED: KETOROLAC 30 MG/ML VIAL IVP PRN (10:15)
[2022-05-07] MEDS ORDERED: CHLORASEPTIC LOZENGE MM PRN (10:15)
[2022-05-07] MEDS ORDERED: ZOLPIDEM 5 MG (AMBIEN) TAB PO PRN (10:15)
[2022-05-07] MEDS ORDERED: SIME80TA16 PO (10:17)
[2022-05-07] MEDS ORDERED: IBUP-844 PO (10:17)
[2022-05-07] MEDS ORDERED: HYDR-34 PO (10:17)
[2022-05-07] MEDS ORDERED: DOCU100C37 PO (10:17)
[2022-05-07] MEDS ORDERED: KETOROLAC 30 MG/ML VIAL ONE (11:45)
--- NOTE | 2022-05-07 12:08 | Anesthesia-General Post-Op ---
General Patient Condition Mental Status/LOC: Same as Preop Cardiovascular: Satisfactory Nausea/Vomiting: Absent Respiratory: Satisfactory Pain: Controlled Complications: Absent Post Op Complications Complications None Follow Up Care/Instructions Patient Instructions None needed. Anesthesia/Patient Condition Patient Condition Patient is doing well, no complaints, stable vital signs, no apparent adverse anesthesia problems. No complications reported per nursing. MARCELINO BOYD CRNA May 07, 2022 12:08
[2022-05-07] MEDS ORDERED: fentaNYL INJ 100 MCG/2 ML AMP IVP ONE (12:15)
[2022-05-07] MEDS ORDERED: HYDROmorphone 2 MG/ML VIAL (DILAUDID) IV ONE (12:15)
[2022-05-07] MEDS ORDERED: MEPERIDINE (DEMEROL) INJ 50 MG/ML IVP ONE (12:15)
[2022-05-07] MEDS ORDERED: PROMETHAZINE INJ 25 MG/ML (PHENERGAN) AMP IVP ONE (12:15)
[2022-05-07] MEDS ORDERED: CEPACOL SORE THROAT-COUGH LOZENGE PO PRN (13:45)
--- NOTE | 2022-05-07 21:34 | OPERATIVE REPORT ---
DATE OF SERVICE: PREOPERATIVE DIAGNOSES: 1. A 52-year-old female with abnormal uterine bleeding. 2. Fibroid uterus. 3. Dysmenorrhea. POSTOPERATIVE DIAGNOSES: 1. A 52-year-old female with abnormal uterine bleeding. 2. Fibroid uterus. 3. Dysmenorrhea. PROCEDURE: Robotic-assisted total laparoscopic hysterectomy with bilateral salpingo-oophorectomy and removal of accessory pelvic mass. SURGEON: Lenard Garcia DO FAN BLADE TRUER: Meena Ruiz DNP, was necessary for manipulation and retraction throughout the procedure. ANESTHESIA: General endotracheal. ESTIMATED BLOOD LOSS: Minimal. URINE OUTPUT: 300 mL clear at the end of procedure. FLUIDS: 1000 mL lactated Ringer's solution. FINDINGS: A grossly normal appearing uterus, bilateral fallopian tubes and ovaries, a dense solid mass in the posterior cul-de-sac along the uterosacral ligament on the right that is nonvascular. SPECIMEN SENT: Uterus, bilateral fallopian tubes and ovaries along with this pelvic mass. INDICATIONS FOR PROCEDURE: This 52-year-old female is a patient who had sought care for abnormal uterine bleeding last fall. She underwent a D and C and hysteroscopy, which seemed to alleviate her symptoms temporarily; however, they returned back later this year and wished to proceed with more definitive measures for this treatment. She did not desire to continue to try D and C and other conservative measures for uterine preservation. Risk of hysterectomy was discussed with the patient in detail including risk of bleeding, infection, damage to surrounding structures including, but not limited to bowel, bladder, ureter, kidneys, possible need for reoperation, postoperative complications that may occur, risk from anesthesia, recovery timeframe and even . After everything was discussed with the patient in detail, consent was obtained, the patient was taken to the operating room. OPERATIVE REPORT IN DETAIL: Once in the operating room, general anesthesia was found to be adequate, placed in dorsal lithotomy position, prepped and draped in normal sterile fashion. A timeout was performed and anesthesia was tested. I then placed a Mejia catheter using sterile technique. A weighted speculum inserted to the patient's vagina. Right angle retractor was used to visualize the cervix, which was grasped at 12 o'clock position using a long Allis clamp. I then placed an 0 Vicryl suture to the anterior lip of the cervix and used the suture as my retraction point. I then gently sound the uterine cavity, depth was found to be 8 cm. I selected an 8 cm Susie uterine manipulator tip and a 3.5 cm colpotomy ring. The uterine manipulator tip was advanced into the uterus where the balloon was deployed. The colpotomy ring was advanced around the vaginal fornix, which offers excellent bimanual manipulation with the Susie uterine manipulator. I then removed all the other instruments from the patient's vagina, performed a change of gloves, obtained my attention to the abdomen, where subcostally at the midclavicular line on the left side, I introduced the Veress needle until intraperitoneal placement was confirmed using saline drop test. An opening pressure 4 mmHg was noted, proceeded to maximum pressure of 15 mmHg using CO2 gas. I then made an 8 mm incision infraumbilically using a knife and directed a blunt laparoscopic da Alvaro camera trocar through the incision until Intraperitoneal placement was confirmed using the da Alvaro laparoscope. There was no evidence of damage upon my entry site. A brief scanning of the upper abdominal anatomy appears to be grossly normal and the Veress needle entry site is identified without damage to surrounding structures. I removed the Veress needle as well. I then had the patient placed in steep Trendelenburg and I am able to visualize all my pelvic anatomy as defined in my findings above. I placed two lateral trocars using both 8 mm laparoscopic da Alvaro camera trocars. Once both these are in place approximately 8 cm lateral to my infraumbilical trocar, I brought in the da Alvaro robot and docked in appropriate fashion. Placing the SynchroSeal device in the left hand and monopolar rusty in the right hand, I performed the following dissection bilaterally. I started at the IP ligament, I sealed and transected using the SynchroSeal device. I then grasped the round ligament, which I sealed and transected using the SynchroSeal device. I then grasped the entire broad ligament, which I sealed and transected using the SynchroSeal device and do this down to the level of the lower uterine segment, identifying the ureter and staying medial to that on the entire dissection plane. I then opened up the broad ligament to anterior posterior leaflets. Anterior leaflets were taken around the anterior vaginal fornix and posterior leaflets were taken around the posterior vaginal fornix. This allows me to skeletonize the uterine vessels laterally, which I sealed and transected using the vessel sealer. I then created a colpotomy at 12 o'clock position using monopolar rusty and took this circumferentially around the vaginal fornix amputating the cervix away from the vagina. The entire specimen was then removed through the vagina. I then also elevated and removed this pelvic mass that was approximately 2 x 3 cm from the posterior cul-de-sac. I did do this by lysing filmy adhesions around the mass and removed it from the pelvic sidewall. It was then removed through the vagina as well. There was no active bleeding noted from that dissection plane and there was no evidence of a solid blood supply to this mass either. I then closed the lateral vaginal apices of the vaginal cuff using 2-0 Vicryl suture in a [id number] fashion colposuspending into the uterosacral ligaments. I closed the remainder of the vaginal cuff using 2-0 V-Loc in a running fashion, after which no active bleeding noted from any of my dissection planes. I then undocked the da Alvaro robot, proceeded with remainder of the case laparoscopically. I copiously irrigated the pelvis using normal saline. Once again, there was no active bleeding noted from any of my dissection planes. I placed Surgiflo hemostatic agent over all my planes of dissection. I had the patient taken out of steep Trendelenburg where I removed the lateral trocars under direct visualization of the laparoscope and infraumbilical trocars left in place to release insufflation and introduced 10 mL of 0.25% Marcaine into peritoneal cavity for postoperative pain management. I then removed this trocar as well. The skin reapproximated using 4-0 Monocryl in interrupted subcuticular. Dermabond was applied to incision and Band-Aids were placed over the incisions as well. The patient tolerated the procedure well and sent to recovery area in stable condition with Mejia catheter still in place. Lap and sponge counts were correct at the end of the procedure. Instrument counts correct as well. Two grams of Ancef, 500 mg of Flagyl were given preoperatively for infection prophylaxis. Job ID: [id number] DocumentID: [id number] Dictated Date: 05/07/2022 12:01:44 Stamping Die Maker Date: 05/07/2022 21:34:26 Dictated By: DO KEVIN TSAI
== END 2022-05-07 18:00 | disposition home or self-care (01) ==
LOC: SDC 08:54 → WS 13:32 → SDC 18:00
PROVIDERS: ATTEND Obstetrics & Gynecology
DX: D25.2 Subserosal leiomyoma of uterus (principal); N83.292 Other ovarian cyst, left side; N94.6 Dysmenorrhea, unspecified; N85.8 Other specified noninflammatory disorders of uterus; N80.0 Endometriosis of uterus; N94.89 Other specified conditions associated with female genital organs and menstrual cycle
CPT/HCPCS: 36415; 84703; 85027; 86850; 86900; 86901; 87081; 88307; 94664

== ENCOUNTER 2022-09-27 05:28 | Outpatient (CLI) | payer BC ==
[~2022-09-27] VITALS: Ht 165.1 cm; Wt 84.5 kg
[~2022-09-27 05:28] MED LIST changes: +DOCU100C37 PO; +HYDR-34 PO; +IBUP-844 PO; +SIME80TA16 PO
[2022-09-27] MEDS ORDERED: ESTR1TAB27 PO (14:54)
[2022-09-27] MEDS ORDERED: FOLI1TAB33 PO (14:54)
== END 2022-09-27 15:01 | disposition home or self-care (01) ==
LOC: PREOP 05:28
PROVIDERS: ATTEND Obstetrics & Gynecology
DX: Z01.818 Encounter for other preprocedural examination (principal)

== ENCOUNTER 2022-10-08 06:53 | Day surgery (SDC) | payer BC ==
[~2022-10-08] VITALS: Ht 165.1 cm; Wt 84.5 kg
[2022-10-08] VITALS (10 sets, daily range): BP systolic 115–149; BP diastolic 69–98
[~2022-10-08 06:53] MED LIST changes: +ESTR1TAB27 PO; +FOLI1TAB33 PO
--- NOTE | 2022-10-08 07:20 | History & Physical-Surgical ---
HPO-Surgical History of Present Illness Chief Complaint: ROBERTO Diagnosis/Surgical Indication: CYSTOCELE,RECTOCELE Procedure: ANTERIOR/POSTERIOR COLPORHAPHY, PUBO VAGINAL SLING CYSTOSCOPY (JUSTICE) Date of Surgery: Oct 08, 2022 Weight (Pounds): 200 Weight (Ounces): 0.0 Height (Feet): 5 Height (Inches): 5.00 Allergies and Home Medications Allergies Coded Allergies: morphine (Unverified Allergy, Severe, 05/02/22) dextran sulfate (Verified Allergy, Unknown, Anaphylaxis, 06/13/21) dextrose (Verified Allergy, Unknown, Anaphylaxis, 06/13/21) iron (Verified Allergy, Unknown, IV IRON, 08/28/10) ondansetron (Unverified Adverse Reaction, Severe, Vomiting, 05/02/22) LACTOSE INTOLERANCE Patient Home Medication List Home Medication List Reviewed: Yes Docusate Sodium (Docusate Sodium) 100 Mg Capsule, 100 MG PO BID PRN for CONSTIPATION-1ST LINE Prescribed by: MONICA JOHN on 05/07/22 1017 Estradiol (Estrace Tablet) 1 Mg Tablet, 1 MG PO DAILY, (Reported) Entered as Reported by: SHALINI ABRAMS on 09/27/22 1454 Folic Acid (Folic Acid) 1 Mg Tablet, 1 MG PO DAILY, (Reported) Entered as Reported by: SHALINI ABRAMS on 09/27/22 1454 [Vitamin B12 Inj] Unknown Strength , Unknown Dose BIWEEKLY, (Reported) Entered as Reported by: SHALINI ABRAMS on 05/02/22 1449 Past Auaxolt-Zdmmuo-Ldjxtt Hx Patient Social History 2nd Hand Smoke Exposure: No Recent Hopitalizations: No Immunizations Up To Date Date of Influenza Vaccine: Aug 20, 2022 Seasonal Allergies Seasonal Allergies: Yes Surgeries Yes (COLON RESECTION, RUEN-Y, CARPAL TUNNEL, KNEE SCOPES BILAT) Gallbladder, Hysterectomy Respiratory No Currently Using CPAP: No Currently Using BIPAP: No Cardiovascular No Neurological No Reproductive System Hx Reproductive Disorders: No Sexually Transmitted Disease: No Female Reproductive Disorders: Menstrual Problems Genitourinary Yes (CYSTOCELE/RECTOCELE) Gastrointestinal Yes (COLON RESECTION AND GASTRIC [id number] PROCEDURE CYSTOCELE/RECTOCELE) Hiatal Hernia Musculoskeletal No 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) HEENT History of HEENT Disorders: Yes (CONTACTS - WILL BRING GLASSES) Cancer Yes Colon Type of Treatment: Surgical Intervention Psychosocial History of Psychiatric Problem: No Integumentary History of Skin or Integumenta: No Blood Transfusions History of Blood Disorders: Yes (ANEMIA) Exam Vital Signs Capillary Refill : General Appearance: Alert, Oriented X3 HEENT: Atraumatic Respiratory: Clear to Auscultation Cardiovascular: Regular Rate Abdominal: Normal Bowel Sounds Psych/Mental Status: Mental Status NL Assessment/Plan Admission Diagnosis Diagnosis: 52 yo w/ Cystocele and Rectocele ROBERTO P: Anterior posterior colporraphy Urethral sling urethropexy(Dr. Lawson) Admission Status: Observation MONICA JOHN DO Oct 08, 2022 07:20
[2022-10-08] MEDS ORDERED: ANTACID SUSP 30 ML UDC (MYLANTA) PO PRN (07:30)
[2022-10-08] MEDS ORDERED: ZOLPIDEM 5 MG (AMBIEN) TAB PO PRN (07:30)
[2022-10-08] MEDS ORDERED: HYDROcodone/APAP 5 MG/325 MG (LORTAB) TAB PO PRN (07:30)
[2022-10-08] MEDS ORDERED: BENZOCAINE LOZENGES 1 EACH LOZENGE MM PRN (07:30)
[2022-10-08] MEDS ORDERED: DOCUSATE SODIUM 100 MG (COLACE) CAP PO PRN (07:30)
[2022-10-08] MEDS ORDERED: SIMETHICONE 80 MG (MYLICON) CHEW PO PRN (07:30)
[2022-10-08] MEDS ORDERED: HYDROmorphone 2 MG/ML VIAL (DILAUDID) IV PRN (07:30)
--- NOTE | 2022-10-08 07:32 | Discharge Inst-Women's Service ---
Discharge Inst-Women's Serv Depart Medication/Instructions New, Converted or Re-Newed RX: Transmitted to Pharmacy Problems Reviewed?: Yes Consults/Follow Up Additional Follow Up: Yes Orders/Referrals Dr. John in [address] Lawson as directed Activity Activity: Activity as Tolerated Driving Instructions: No Driving for 1 Week NO SMOKING: NO SMOKING Nothing Inside Vagina: No Douching, No Smiley, No Tampons Diet Discharge Diet: No Restrictions Symptoms to Report to : Bleeding Excessive, Pain Increased, Fever Over 101 Degrees F, Vaginal Bleeding Increase, Questions/Concerns For Any Problems or Questions: Contact Your Physician Skin/Wound Care Infection Signs and Symptoms: Increased Redness, Foul Odor of Wound, Increased Drainage, Skin Itchy or Has a Rash, Increased Swelling, Temperature Above 101 F MONICA JOHN DO Oct 08, 2022 07:32
[2022-10-08] MEDS ORDERED: ACHD5005 PO (07:33)
[2022-10-08] MEDS ORDERED: DOCU100C37 PO (07:33)
[2022-10-08] MEDS ORDERED: SIME80TA16 PO (07:33)
[2022-10-08] MEDS ORDERED: IBUP-844 PO (07:33)
[2022-10-08] MEDS ORDERED: VANCOMYCIN INJECTION 1,000 MG in NS (IVPB) 250 ML IV ONE (07:45)
[2022-10-08] MEDS ORDERED: ESTRADIOL VAGINAL CREAM 42.5 GM (ESTRACE) VG ONE (08:04)
[2022-10-08] MEDS ORDERED: VASOPRESSIN INJECTION 20 UNIT/ML VIAL ONE (08:04)
[2022-10-08] MEDS ORDERED: NS (IVPB) 200 ML ONE (08:04)
[2022-10-08] MEDS ORDERED: ESTROGENS CONJ. CREAM 30 GM (PREMARIN) TUBE ONE (08:07)
[2022-10-08] MEDS ORDERED: fentaNYL INJ 100 MCG/2 ML AMP ONE ×2 (08:12→10:45)
[2022-10-08] MEDS ORDERED: proPOfol 200 MG/20 ML (DIPRIVAN) VIAL IV ONE (08:12)
[2022-10-08] MEDS ORDERED: LIDOCAINE PF 2% 5 ML (XYLOCAINE) VIAL ONE (08:12)
[2022-10-08] MEDS ORDERED: MIDAZOLAM 2 MG/2 ML (VERSED) VIAL ONE (08:12)
[2022-10-08 08:15] LABS: BASOPHILS % (AUTO) 1 % (0-10); EOSINOPHILS # (AUTO) 0.1 10^3/uL (0.0-0.3); EOSINOPHILS % (AUTO) 2 % (0-10); HEMATOCRIT 37 % (35-52); HEMOGLOBIN 11.3 g/dL (11.5-16.0); LYMPHOCYTES # (AUTO) 1.5 10^3/uL (1.0-4.0); LYMPHOCYTES % (AUTO) 35 % (12-44); MEAN CORPUSCULAR HEMOGLOBIN 23 pg (25-34); MEAN CORPUSCULAR HGB CONC 30 g/dL (32-36); MEAN CORPUSCULAR VOLUME 75 fL (80-99); MEAN PLATELET VOLUME 11.1 fL (9.0-12.2); MONOCYTES # (AUTO) 0.5 10^3/uL (0.0-1.0); MONOCYTES % (AUTO) 11 % (0-12); NEUTROPHILS # (AUTO) 2.2 10^3/uL (1.8-7.8); NEUTROPHILS % (AUTO) 52 % (42-75); PLATELET COUNT 209 10^3/uL (130-400); WHITE BLOOD COUNT 4.2 10^3/uL (4.3-11.0)
[2022-10-08] MEDS: LACTATED RINGERS 1,000 ML IV PRN ×2 (08:16→09:41)
[2022-10-08] MEDS ORDERED: ESTROGENS CONJ. CREAM 30 GM (PREMARIN) TUBE VG ONE (09:36)
[2022-10-08] MEDS ORDERED: VASOPRESSIN INJECTION 20 UNIT/ML VIAL INJ ONE (09:37)
[2022-10-08] MEDS ORDERED: VASOPRESSIN INJECTION 20 UNIT/ML VIAL INJ NR (09:38)
[2022-10-08] MEDS ORDERED: NS 100 ML (IVPB) BAG INJ ONE (09:39)
[2022-10-08] MEDS: LACTATED RINGERS 1,000 ML IV SCH ×3 (09:41→16:21)
--- NOTE | 2022-10-08 10:10 | Progress Note-Post Operative ---
Post-Operative Progess Note Surgeon (s)/Station Mechanic Helper (s) Surgeon RAINE RENDON MD Station Mechanic Helper: MONICA BOYLE DO Pre-Operative Diagnosis ROBERTO Post-Operative Diagnosis SAME Procedure & Operative Findings Date of Procedure 10/08/22 Procedure Performed/Findings PVS AND CYSTOSCOPY Anesthesia Type GENERAL Estimated Blood Loss Estimated blood loss (mL): NONE Specimens/Packing Specimens Removed NONE Packing: ESTRACE VAG PACK RAINE RENDON MD Oct 08, 2022 10:10
[2022-10-08] MEDS ORDERED: KETOROLAC 30 MG/ML VIAL ONE (10:24)
[2022-10-08] MEDS ORDERED: SEVOFLURANE (ULTANE) 15 ML INHAL SOLN ONE (10:24)
[2022-10-08] MEDS: KETOROLAC 30 MG/ML VIAL IVP PRN ×2 (10:37→18:52)
[2022-10-08] MEDS ORDERED: fentaNYL INJ 100 MCG/2 ML AMP IVP ONE (10:45)
[2022-10-08] MEDS ORDERED: HYDROmorphone 2 MG/ML VIAL (DILAUDID) IV ONE (10:45)
[2022-10-08] MEDS ORDERED: PROMETHAZINE INJ 25 MG/ML (PHENERGAN) AMP IVP ONE ×2 (10:45→21:15)
[2022-10-08] MEDS: IBUPROFEN 600 MG (MOTRIN) TAB PO SCH ×2 (12:00→18:00)
--- NOTE | 2022-10-08 13:06 | Anesthesia-General Post-Op ---
General Patient Condition Mental Status/LOC: Same as Preop Cardiovascular: Satisfactory Nausea/Vomiting: Absent Respiratory: Satisfactory Pain: Controlled Complications: Absent Post Op Complications Complications None Follow Up Care/Instructions Patient Instructions None needed. Anesthesia/Patient Condition Patient Condition Patient was doing well in PACU with no complaints, stable vital signs, no apparent adverse anesthesia problems. No complications reported per nursing. PHILIPP MICHAEL DO Oct 08, 2022 13:06
[2022-10-08] MEDS ORDERED: MILK OF MAGNESIA 400 MG/5 ML 30 ML UDC PO ONE (15:15)
--- NOTE | 2022-10-08 16:22 | OPERATIVE REPORT ---
DATE OF SERVICE: 10/08/2022 PREOPERATIVE DIAGNOSIS: Stress urinary incontinence on my part. POSTOPERATIVE DIAGNOSIS: Stress urinary incontinence on my part. PROCEDURES PERFORMED: Pubovaginal sling and cystoscopy. SURGEON: Kaz Rendon MD. SENIOR BUYER PLANNER: Dr. Garcia. ANESTHESIA: General. COMPLICATIONS: None. DESCRIPTION OF PROCEDURE: Under satisfactory general anesthesia, the patient in extended lithotomy position after Dr. Garcia performed the anterior repair, I inserted a Mejia catheter draining clear urine. I went ahead and passed the Desara One device on both sides using the described technique. The sling was sitting nicely under the mid urethra with no twisting or tension and I went ahead and removed the Mejia catheter. I performed cystoscopy to confirm the integrity of the bladder, ureteral orifices, and urethra. There was no foreign body and presence of the sling under the midurethra. I left the bladder half full and removed the cystoscope and performed a manual Valsalva maneuver that was negative. I reinserted the Mejia catheter draining clear fluid and Dr. Garcia proceeded with the rest of his surgery that he will dictate. Job ID: [id number] DocumentID: [id number] Dictated Date: 10/08/2022 10:13:40 Stage Technician Date: 10/08/2022 16:20:00 Dictated By: KAZ RENDON MD
--- NOTE | 2022-10-08 18:17 | OPERATIVE REPORT ---
DATE OF SERVICE: 10/08/2022 PREOPERATIVE DIAGNOSES: 1. A 52-year-old female with stress urinary incontinence. 2. Grade III cystocele. 3. Grade II rectocele. POSTOPERATIVE DIAGNOSES: 1. A 52-year-old female with stress urinary incontinence. 2. Grade III cystocele. 3. Grade II rectocele. PROCEDURES PERFORMED: Anterior and posterior colporrhaphy with perineoplasty and midurethral sling placement by Dr. Lawson SURGEON: Lenard Garcia DO. CO-SURGEON: Kaz Lawson MD. RISK MANAGEMENT INTERNSHIP: Meena Ruiz DNP, is necessary for manipulation, retraction throughout the procedure. ANESTHESIA: General endotracheal. ESTIMATED BLOOD LOSS: 150 mL. URINE OUT: 200 mL was drained at the end of the procedure. FLUIDS: 1300 mL lactated Ringer's solution. FINDINGS: Grade III cystocele, grade II rectocele, and mid urethral laxity. SPECIMEN SENT: None. INDICATIONS FOR PROCEDURE: This is a 52-year-old female, who was a patient who had sought care at Dr. Lawson's office for stress urinary incontinence after having hysterectomy. Dr. Lawson assessed the patient and decided that she did have an anterior and posterior vaginal wall defect, which required repair at the same time. I discussed with the patient this repair in detail including risk of bleeding, infection, damage to the surrounding structures including, but not limited to bowel, bladder, ureter , possible need for reoperation, vaginal narrowing with the procedure that would naturally occur postop, recovery timeframe and stretching of the vagina that would need to take place postoperatively. After all of her questions were answered, consent was obtained. The patient was taken to the operating room. DESCRIPTION OF PROCEDURE: Once in the operating room, general anesthesia was found to be adequate. She was placed in the dorsal lithotomy position and prepped and draped in normal sterile fashion. Timeout was performed. I addressed the cystocele first by placing a weighted speculum into the patient's vagina. The mucosa of the anterior wall defect was grasped with Allis clamp and the submucosa was infiltrated using vasopressin concentration of 20 units in 100 mL of normal saline. Once the entire mucosa is blanched, I then make a transverse incision at the mid urethra until the subfascia was encountered. I then dissected undermining down the midline of the cystocele defect with the Metzenbaum scissors all the way down the midline until the proximal portion of the defect is encountered at the proximal end of the vagina after which I grasped the lateral side of the mucosal incision, tented up and dissected off the underlying vesicovaginal fascia. I do this bilaterally down the margins of the defect. I then proceeded with reapproximating the lateral margins of the healthy fascia using 0 Vicryl suture in interrupted fashion plicating and reducing the cystocele as I go distally with some redundant vaginal mucosal tissue as well. I then have Dr. Lawson come in, who performed the midurethral sling placement and cystoscopy to confirm no damage to the bladder. Once he was done with his portion of the procedure, I trimmed the excess vaginal mucosa and reapproximated the mucosa using 3-0 Vicryl suture in a running locked fashion. I then taped my attention to the rectocele, where in similar fashion, I infiltrated all the margins of the submucosa using the same concentration of vasopressin including the perineal body. I then began by making an upside down triangle incision down to the perineal body, which allows me to take off the cutaneous tissue and gives me access to the submucosa down the posterior margin of the rectocele defect. I then undermined down the midline of this using Metzenbaum scissors and to make an incision down the midline. I then tented the mucosa upward and dissected off the underlying vesicorectal fascia to the lateral margins of the rectocele. I then plicated the healthy fascia using 0 Vicryl suture in an interrupted fashion. Once the rectocele was reduced, I trimmed the excess vaginal mucosa and then closed the vaginal mucosa using 0 Vicryl suture in a running locked fashion until I reached the mucocutaneous junction, at which point, I buried the suture underneath the mucosa. I then placed two crown stitches of 0 Vicryl suture in a [id number] fashion on the perineal body, reapproximating and building up the perineal body. I then closed the submucosa and subcutaneous tissue of the perineum using 3-0 Vicryl suture in a subcuticular fashion. After this was done, I packed the vagina using Premarin-soaked vaginal packing. The patient tolerated the procedure well and was taken to recovery area in stable condition with vaginal packing in place and Mejia catheter still in place. Lap and sponge counts were correct at the end of the procedure. Instrument counts were correct as well. Job ID: [id number] DocumentID: [id number] Dictated Date: 10/08/2022 10:35:22 Cooling Machine Operator Date: 10/08/2022 18:15:00 Dictated By: DO KEVIN TSAI
[2022-10-09] MEDS: LACTATED RINGERS 1,000 ML IV SCH (00:12)
[2022-10-09 01:20] VITALS: BP 123/66
[2022-10-09 06:15] VITALS: BP 114/66
[2022-10-09 08:00] VITALS: BP 133/79
== END 2022-10-09 12:05 | disposition home or self-care (01) ==
LOC: SDC 06:53 → WS 11:38 → SDC 10-09 12:05
PROVIDERS: ATTEND Obstetrics & Gynecology
DX: N39.3 Stress incontinence (female) (male) (principal); N81.6 Rectocele; N81.10 Cystocele, unspecified
CPT/HCPCS: 36415; 85025; 86850; 86900; 86901; 87081; 94664